=== PATIENT | female | born 1970 | race Caucasian/White ===

== ENCOUNTER → 2018-05-25 | Outpatient (CLI) | payer BC | LOC: MAMMO 12:58 | DX: Z12.31 Encounter for screening mammogram for malignant neoplasm of breast (principal) ==

== ENCOUNTER 2020-07-03 09:03 | Outpatient (RCR) | payer BC | END 2020-07-03 09:45 | disposition still patient (30) | LOC: PT 09:03 | DX: M54.5 Low back pain (principal) ==

== ENCOUNTER → 2020-10-03 | Outpatient (CLI) | payer BC | LOC: MAMMO 09:38 | DX: Z12.31 Encounter for screening mammogram for malignant neoplasm of breast (principal) ==

== ENCOUNTER → 2020-12-19 | Outpatient (CLI) | payer BC | LOC: RAD 15:52 | DX: K76.89 Other specified diseases of liver (principal); D18.09 Hemangioma of other sites; N28.1 Cyst of kidney, acquired; Z95.828 Presence of other vascular implants and grafts | CPT/HCPCS: A9585 ==

== ENCOUNTER → 2021-03-08 | Outpatient (CLI) | payer BC | LOC: LAB 09:40 | DX: N39.0 Urinary tract infection, site not specified (principal) ==

== ENCOUNTER → 2022-02-24 | Outpatient (CLI) | payer BC | LOC: MAMMO 09:15 | DX: Z12.31 Encounter for screening mammogram for malignant neoplasm of breast (principal) ==

== ENCOUNTER 2024-04-20 12:07 | Emergency (ER) | payer BC ==
[~2024-04-20] VITALS: Ht 165.1 cm; Wt 61.4 kg
[2024-04-20 13:07] LABS: BASO # 0.04 K/mm3 (0.02-0.10); EOS # 0.04 K/mm3 (0.04-0.40); EOS % 0.6 % (1.0-5.0); HEMATOCRIT 39.9 % (37.0-47.0); HEMOGLOBIN 13.1 g/dL (12.5-16.0); LYMPH# 1.75 K/mm3 (1.50-4.00); MEAN CELL VOLUME 92 fl (78-100); MEAN CORPUSCULAR HEMOGLOBIN 30 pg (27-31); MEAN CORPUSCULAR HGB CONC 33 g/dL (33-37); MEAN PLATELET VOLUME 10.2 fl (7.4-10.4); MONO # 0.67 K/mm3 (0.20-0.80); NEU # 3.82 K/mm3 (1.40-6.50); PLATELET COUNT 230 K/mm3 (130-400); RED BLOOD COUNT 4.32 M/mm3 (4.10-5.30); RED CELL DISTRIBUTION WIDTH 12.2 % (11.5-14.5); WHITE BLOOD COUNT 6.3 K/mm3 (4.8-10.8)
[2024-04-20 13:09] LABS: ALBUMIN 4.2 g/dL (3.5-5.0)
[2024-04-20 13:11] LABS: CALCIUM 9.2 mg/dL (8.3-10.5)
[2024-04-20 13:12] LABS: TOTAL PROTEIN 6.7 g/dL (6.4-8.3)
[2024-04-20 13:14] LABS: TOTAL BILIRUBIN 0.7 mg/dL (0.2-1.2)
[2024-04-20 15:00] VITALS: BP 130/75
== END 2024-04-20 15:15 | disposition home or self-care (01) ==
LOC: ED 12:07
PROVIDERS: Physician Assistant
DX: S06.9X1A Unspecified intracranial injury with loss of consciousness of 30 minutes or less, initial encounter (principal); G40.909 Epilepsy, unspecified, not intractable, without status epilepticus; W19.XXXA Unspecified fall, initial encounter; W22.8XXA Striking against or struck by other objects, initial encounter